=== PATIENT | female | born 1950 | race African-American/Black ===

== ENCOUNTER → 2018-04-30 12:38 | Outpatient (CLI) | payer MEDICARE ==
[2018-04-30 14:04] LABS: HEMATOCRIT 42.7 % (36.0-48.0); HEMOGLOBIN 14.5 g/dL (12-16); MCH 28.9 pg (26.0-34.0); MCV 85.2 fL (80.0-100.0); MEAN PLATELET VOLUME 10.5 fL (7.4-10.4); PLATELET COUNT 258 10x3/uL (130-400); RBC 5.01 10x6/uL (4.00-5.40); WBC 7.1 10x3/uL (4.8-10.8)
[2018-04-30 14:18] LABS: APPEARANCE CLEAR (CLEAR); BILIRUBIN NEGATIVE (NEGATIVE); COLOR YELLOW (YELLOW); GLUCOSE 1000 mg/dL (NEGATIVE); KETONE NEGATIVE (NEGATIVE); NITRITE NEGATIVE (NEGATIVE); PROTEIN NEGATIVE (NEGATIVE); UROBILINOGEN NORMAL (NORMAL)
[2018-04-30 14:26] LABS: ALBUMIN 3.6 g/dL (3.4-5.0); ALKALINE PHOSPHATASE 113 U/L (46-116); ALT (SGPT) 26 U/L (10-68); CALC OSMOLALITY 286 mosm/kg (275-300); CALCIUM 9.2 mg/dL (8.5-10.1); CHLORIDE - SERUM 99 mmol/L (98-107); CHOL - HDL RATIO 4.5 ratio (2.3-4.1); CHOLESTEROL, TOTAL 259 mg/dL (0-200); CKMB 0.2 U/L (0.0-3.6); CREATININE - SERUM 0.9 mg/dL (0.6-1.3); GLUCOSE 274 mg/dL (74-106); HDL CHOLESTEROL 57 mg/dL (32-96); LDL CHOLESTEROL 161 mg/dL (0-100); LDL-HDL RATIO 2.8 ratio (1.5-3.5); PROTEIN - SERUM 8.3 g/dL (6.4-8.2); SODIUM 139 mmol/L (136-145); THYROID STIMULATING HORMONE 0.84 uIU/mL (0.36-3.74); TRIGLYCERIDE 207 mg/dL (30-200); UREA NITROGEN 11 mg/dL (7-18); eGFR NON AFRICAN AMERICAN 66 mL/min (90-120)
[2018-04-30 14:27] LABS: TROPONIN-I < 0.017 ng/mL (0.000-0.060)
[2018-04-30 14:48] LABS: LYMPHOCYTES 54 % (15-50); MONOCYTES 3 % (2-11); NEUTROPHILS 43 % (40-80)
[2018-04-30 14:49] LABS: PLATELET ESTIMATE NORMAL
== END | disposition home or self-care (01) ==
LOC: D.LAB 12:38
PROVIDERS: Family Medicine
DX: E11.9 Type 2 diabetes mellitus without complications (principal); G30.9 Alzheimer's disease, unspecified; F02.80 Dementia in other diseases classified elsewhere, unspecified severity, without behavioral disturbance, psychotic disturbance, mood disturbance, and anxiety; E78.5 Hyperlipidemia, unspecified; R06.02 Shortness of breath; I10 Essential (primary) hypertension

== ENCOUNTER → 2018-06-01 10:10 | Outpatient (CLI) | payer MEDICARE ==
--- NOTE | 2018-06-07 11:54 | EC ---
PATIENT:ERICK DE JESUS DATE OF SERVICE: 06/01/18 SEX: F MEDICAL RECORD: [id number] DATE OF : [birth year] LOCATION:D[facility] AGE OF PATIENT: 67 ADMISSION DATE: 06/01/18 REFERRING PHYSICIAN: INTERPRETING PHYSICIAN: LAZARO EVERETT MD ECHOCARDIOGRAM REPORT ECHO CHARGES 4 ECHO COMPLETE Date: 06/01/18 CLINICAL DIAGNOSIS: DYSPNEA ECHOCARDIOGRAPHIC MEASUREMENTS (adult normal given) AC root (d.<3.7cm) 3.6 cm LV Septum d (<1.2 cm> 1.8 cm Valve Excursion 2.0 cm LV Septum (systole) 1.9 cm Left Atria (s.<4.0cm> 3.6 cm LVPW d(<1.2cm) 1.7 cm RV (d.<2.3cm) 3.2 cm LVPW (sytole) 2.0 cm LV diastole(<5.6CM) 4.8 cm MV E-F(>70mm/sec) cm LV systole 3.1 cm LVOT Diameter 1.6 cm MV exc.(>10mm) 1.3 cm Est.ejection fraction (50-75%) % DOPPLER: LVIT cm/sec A 113 cm/sec E 91.0 cm/sec LA cm/sec RVSP 29 mmHg LVOT 120 cm/sec AOP1/2T m/s Asc. Ao 139 cm/sec RVOT 115 cm/sec RA cm/sec PA 133 cm/sec AV Gradient Peak 7.70 mmHg AV Mean 3.11 mmHg AV Area 2.1 cm MV Gradient Peak 6.02 mmHg MV Mean 2.56 mmHg MV Area cm COMMENTS: Principal Accounts Clerk: Gallo ARCE Clip Coater: 3 Dr. Alvarez TAPE# PACS Pericardial Effusion N DATE OF SERVICE: 06/01/2018 PROCEDURE: Echocardiogram. FINDINGS: 1. Left ventricular chamber size is within normal limits. Left ventricular systolic function is normal. Overall ejection fraction estimated at 65%. 2. Left atrium, right atrium, and right ventricle chamber sizes are within normal limits. 3. Valvular structures have normal structure and motion. ECHOCARDIOGRAM REPORT [id number] ERICK DE JESUS 4. Doppler interrogation reveals trace tricuspid regurgitation, no other valvular insufficiency or stenosis. Pulmonary systolic pressure is estimated at 20 mmHg. 5. No evidence of pericardial effusion or left ventricular thrombus. TRANSINT:[id number] Voice Confirmation ID: [id number] DOCUMENT ID: [id number] LAZARO EVERETT MD at 1154 CC: [id number] DICTATION DATE: 06/01/18 1133 HARD HAT DIVER: 06/01/18 1204 DEP CLI 06/01/18 [place] [id number] [place] [id number]
== END | disposition home or self-care (01) ==
LOC: D.ECHO 09:00
PROVIDERS: ATTEND Internal Medicine Interventional Cardiology
DX: R06.00 Dyspnea, unspecified (principal); R01.1 Cardiac murmur, unspecified; I65.23 Occlusion and stenosis of bilateral carotid arteries

== ENCOUNTER 2018-08-17 09:00 | Outpatient (CLI) | payer MEDICARE | END 2018-08-17 10:00 | disposition home or self-care (01) | LOC: D.MAMMO 09:00 | PROVIDERS: ATTEND Nurse Practitioner | DX: Z12.31 Encounter for screening mammogram for malignant neoplasm of breast (principal) ==

== ENCOUNTER → 2018-09-28 11:59 | Outpatient (CLI) | payer MEDICARE ==
[2018-09-28 12:49] LABS: HEMATOCRIT 35.7 % (36.0-48.0); HEMOGLOBIN 12.2 g/dL (12-16); MCH 29.2 pg (26.0-34.0); MCHC 34.2 g/dL (31.0-37.0); MCV 85.4 fL (80.0-100.0); MEAN PLATELET VOLUME 9.8 fL (7.4-10.4); PLATELET COUNT 212 10x3/uL (130-400); RBC 4.18 10x6/uL (4.00-5.40); RDW 13.4 % (11.5-14.5)
[2018-09-28 13:03] LABS: ALBUMIN 3.7 g/dL (3.4-5.0); ANION GAP 12.2 mmol/L (8-16); BILIRUBIN - TOTAL 0.38 mg/dL (0.2-1.3); CALCIUM 8.9 mg/dL (8.5-10.1); CARBON DIOXIDE 28.4 mmol/L (21.0-32.0); CHOL - HDL RATIO 1.9 ratio (2.3-4.1); CREATININE - SERUM 0.9 mg/dL (0.6-1.3); LDL-HDL RATIO 0.8 ratio (1.5-3.5); POTASSIUM - SERUM 3.6 mmol/L (3.5-5.1); PROTEIN - SERUM 7.5 g/dL (6.4-8.2)
[2018-09-28 13:49] LABS: LYMPHOCYTES 45 % (15-50); MONOCYTES 10 % (2-11); NEUTROPHILS 45 % (40-80); PLATELET ESTIMATE NORMAL
[2018-09-28 13:50] LABS: ANISOCYTOSIS OCC
== END | disposition home or self-care (01) ==
LOC: D.LAB 11:59
PROVIDERS: ATTEND Family Medicine
DX: I10 Essential (primary) hypertension (principal); E11.9 Type 2 diabetes mellitus without complications; G30.9 Alzheimer's disease, unspecified; F02.80 Dementia in other diseases classified elsewhere, unspecified severity, without behavioral disturbance, psychotic disturbance, mood disturbance, and anxiety

== ENCOUNTER → 2018-12-28 11:01 | Outpatient (CLI) | payer MEDICARE ==
[2018-12-28 11:42] LABS: ALBUMIN 3.6 g/dL (3.4-5.0); ANION GAP 9.8 mmol/L (8-16); BILIRUBIN - DIRECT 0.07 mg/dL (0.00-0.30); BILIRUBIN - INDIRECT 0.25 mg/dL (0.00-1.00); BILIRUBIN - TOTAL 0.32 mg/dL (0.2-1.3); CALCIUM 8.6 mg/dL (8.5-10.1); CHOL - HDL RATIO 2.3 ratio (2.3-4.1); POTASSIUM - SERUM 3.8 mmol/L (3.5-5.1); PROTEIN - SERUM 7.2 g/dL (6.4-8.2)
== END | disposition home or self-care (01) ==
LOC: D.LAB 11:01
PROVIDERS: ATTEND Family Medicine
DX: E11.9 Type 2 diabetes mellitus without complications (principal); I10 Essential (primary) hypertension; E78.5 Hyperlipidemia, unspecified

== ENCOUNTER → 2020-01-13 10:13 | Outpatient (CLI) | payer MEDICARE ==
[2020-01-13 10:44] LABS: BASOPHILS 0.3 % (0-2); EOSINOPHILS 0.6 % (0-7); HEMATOCRIT 38.1 % (36.0-48.0); HEMOGLOBIN 12.5 g/dL (12-16); IMMATURE GRANULOCYTES 0.1 % (0-5); LYMPHOCYTES 45.7 % (15-50); MCHC 32.8 g/dL (31.0-37.0); MCV 85.4 fL (80.0-100.0); MONOCYTES 5.2 % (2-11); NEUTROPHILS 48.1 % (40-80); PLATELET COUNT 247 10x3/uL (130-400); RBC 4.46 10x6/uL (4.00-5.40); WBC 7.9 10x3/uL (4.8-10.8)
[2020-01-13 11:15] LABS: ALBUMIN 3.9 g/dL (3.4-5.0); ANION GAP 15.1 mmol/L (8-16); BILIRUBIN - TOTAL 0.27 mg/dL (0.2-1.3); CALCIUM 8.9 mg/dL (8.5-10.1); CHOL - HDL RATIO 2.6 ratio (2.3-4.1); CREATININE - SERUM 1.3 mg/dL (0.6-1.3); LDL-HDL RATIO 1.2 ratio (1.5-3.5); POTASSIUM - SERUM 4.1 mmol/L (3.5-5.1)
[2020-01-13 11:44] LABS: BILIRUBIN NEGATIVE (NEGATIVE); KETONE NEGATIVE (NEGATIVE); NITRITE NEGATIVE (NEGATIVE); UROBILINOGEN NORMAL mg/dL (< 2)
[2020-01-13 11:45] LABS: BACTERIA FEW HPF (NONE SEEN); EPITHELIAL CELLS 0-5 /hpf (0-5)
== END | disposition home or self-care (01) ==
LOC: D.LAB 10:13
PROVIDERS: ATTEND Family Medicine
DX: E11.9 Type 2 diabetes mellitus without complications (principal); I10 Essential (primary) hypertension; G30.9 Alzheimer's disease, unspecified; Z00.00 Encounter for general adult medical examination without abnormal findings; R54 Age-related physical debility